=== PATIENT | female | born 1975 | race Caucasian/White ===

== ENCOUNTER → 2018-12-02 | Outpatient (CLI) | payer SELFPAY ==
--- NOTE | 2018-12-02 13:09 | REP ---
Left foot series: Four views. History: Pain in the left foot. Findings: Four views of the left foot demonstrate Achilles and plantar calcaneal spurring. 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 Is also spurring at the first IP joint. Overall mineralization pattern is normal. No acute bony abnormality. Impression: Heel spurring. First MTP joint and first IP joint osteoarthritic spurring. Electronically Signed by Mina Rebollar MD 12/02/2018 01:00 P
== END ==
LOC: M ADAMS 11:08
PROVIDERS: ATTEND Physician Assistant Medical
DX: M19.072 Primary osteoarthritis, left ankle and foot (principal); M25.775 Osteophyte, left foot

== ENCOUNTER → 2019-11-14 | Outpatient (REF) | payer OTHER ==
[2019-11-14 12:00] LABS: BASO % 0.6 % (0.0-1.0); EOS # 0.2 10^3/uL (0.0-0.5); EOS % 3.4 % (0.0-3.0); HEMATOCRIT 39.9 % (36.0-47.0); HEMOGLOBIN 12.9 g/dl (12.0-15.5); LYMPH # 1.3 10^3/uL (1.5-5.0); LYMPH % 20.1 % (24.0-44.0); MEAN CORPUSCULAR HEMOGLOBIN 29.3 pg (27.0-33.0); MEAN CORPUSCULAR HGB CONC 32.3 g/dl (32.0-36.5); MEAN CORPUSCULAR VOLUME 90.5 fl (80.0-96.0); MONO # 0.5 10^3/uL (0.0-0.8); NEUTROPHILS # 4.2 10^3/uL (1.5-8.5); NEUTROPHILS % 67.6 % (36.0-66.0); PLATELET COUNT, AUTOMATED 253 10^3/uL (150-450); RED BLOOD COUNT 4.41 10^6/uL (4.00-5.40); WHITE BLOOD COUNT 6.2 10^3/uL (4.0-10.0)
[2019-11-14 12:31] LABS: HEMOGLOBIN A1c 5.7 %
[2019-11-14 12:41] LABS: ALBUMIN 3.7 GM/DL (3.2-5.2); ALT/SGPT 15 U/L (12-78); BILIRUBIN,TOTAL 0.6 MG/DL (0.2-1.0); BLOOD UREA NITROGEN 11 MG/DL (7-18); CALCIUM LEVEL 9.2 MG/DL (8.5-10.1); CARBON DIOXIDE LEVEL 29 MEQ/L (21-32); CHLORIDE LEVEL 107 MEQ/L (98-107); CHOLESTEROL LEVEL 192 MG/DL (<200); CHOLESTEROL RISK RATIO 4.465 (<5); CREATININE FOR GFR 0.87 MG/DL (0.55-1.30); FREE T4 0.88 NG/DL (0.76-1.46); GLOMERULAR FILTRATION RATE > 60.0 (>58); GLUCOSE, FASTING 95 MG/DL (70-100); HDL CHOLESTEROL 43 MG/DL (>40); LDL CHOLESTEROL 99 MG/DL (<100); NON-HDL-C 149 MG/DL; POTASSIUM SERUM 4.3 MEQ/L (3.5-5.1); SODIUM LEVEL 139 MEQ/L (136-145); TOTAL PROTEIN 6.9 GM/DL (6.4-8.2); TRIGLYCERIDES LEVEL 248 MG/DL (<150)
== END ==
LOC: M LAB REF 11:23
PROVIDERS: ATTEND Physician Assistant
DX: A63.0 Anogenital (venereal) warts (principal); F41.8 Other specified anxiety disorders; Z00.01 Encounter for general adult medical examination with abnormal findings; J45.20 Mild intermittent asthma, uncomplicated; Z68.39 Body mass index [BMI] 39.0-39.9, adult; E66.09 Other obesity due to excess calories

== ENCOUNTER → 2020-03-19 | Outpatient (CLI) | payer OTHER ==
--- NOTE | 2020-03-19 14:57 | REPMRS ---
Patient History The patient states she had a clinical breast exam in February 2020. Family history of uterine cancer at age 62 in mother, colorectal cancer at age 50 or over in maternal grandmother, unknown cancer in paternal grandmother, esophgealcancer in paternal grandfather. Digital Woman Screen Mammo: March 19, 2020 - Exam #: [id number] Bilateral CC and MLO view(s) were taken. Technologist: Ambar Lorenz, Technologist No prior studies available for comparison. FINDINGS: There are scattered fibroglandular densities. The Volpara volumetric breast density category is: B. There is no evidence of dominant mass, architectural distortion, or grouped microcalcification typical of malignancy. 3-D tomosynthesis shows no additional findings. Assessment: BI-RADS/ACR category 1 mammogram. Negative Mammogram. Recommendation Routine screening mammogram of both breasts in 1 year (for women over age 40). This patient's Lifetime Breast Cancer RIsk is estimated at 10.8 %. This mammogram was interpreted with the aid of an FDA-approved computer-aided dectection system. Electronically Signed By: Dawson Rebollar MD 03/19/20 [id number]
== END ==
LOC: M WHC 09:04
PROVIDERS: ATTEND Physician Assistant
DX: Z12.31 Encounter for screening mammogram for malignant neoplasm of breast (principal); Z80.49 Family history of malignant neoplasm of other genital organs

== ENCOUNTER 2020-09-06 08:40 | Emergency (ER) | payer OTHER ==
[~2020-09-06] VITALS: Ht 162.6 cm; Wt 105.2 kg
[2020-09-06] MEDS ORDERED: CETI-24 (08:47)
[2020-09-06] MEDS ORDERED: ESCI10TA2 (08:47)
[2020-09-06] MEDS ORDERED: MONT5TAB2 (08:47)
[2020-09-06] MEDS ORDERED: FLUTISP (08:47)
[2020-09-06 09:24] LABS: BASO % 0.5 % (0.0-1.0); EOS # 0.2 10^3/uL (0.0-0.5); EOS % 2.7 % (0.0-3.0); HEMATOCRIT 36.9 % (36.0-47.0); HEMOGLOBIN 11.4 g/dl (12.0-15.5); MEAN CORPUSCULAR HEMOGLOBIN 28.2 pg (27.0-33.0); MEAN CORPUSCULAR HGB CONC 30.9 g/dl (32.0-36.5); MEAN CORPUSCULAR VOLUME 91.3 fl (80.0-96.0); MONO # 0.4 10^3/uL (0.0-0.8); MONO % 7.7 % (0.0-5.0); NEUTROPHILS # 3.9 10^3/uL (1.5-8.5); NEUTROPHILS % 70.6 % (36.0-66.0); PLATELET COUNT, AUTOMATED 241 10^3/uL (150-450); RED BLOOD COUNT 4.04 10^6/uL (4.00-5.40); WHITE BLOOD COUNT 5.5 10^3/uL (4.0-10.0)
--- NOTE | 2020-09-06 09:39 | REP ---
INDICATION: CHEST PAIN COMPARISON: None. TECHNIQUE: Portable AP view of the chest FINDINGS: The mediastinum and cardiac silhouette are within normal limits for portable technique. The lung humphries are clear without acute consolidation, effusion, or pneumothorax. Skeletal structures are intact. IMPRESSION: No acute cardiopulmonary process appreciated. <Electronically signed by Dell Delgado > 09/06/20 [id number]
[2020-09-06] MEDS ORDERED: MAALOX 30 ML SUSP *UDC PO ONE (10:00)
[2020-09-06 10:07] LABS: ALBUMIN 3.4 GM/DL (3.2-5.2); ALT/SGPT 21 U/L (12-78); BILIRUBIN,DIRECT < 0.1 MG/DL (0.0-0.2); BILIRUBIN,TOTAL 0.3 MG/DL (0.2-1.0); BLOOD UREA NITROGEN 9 MG/DL (7-18); CALCIUM LEVEL 8.6 MG/DL (8.5-10.1); CARBON DIOXIDE LEVEL 26 MEQ/L (21-32); CHLORIDE LEVEL 109 MEQ/L (98-107); CK-MB VALUE MASS 1.6 NG/ML (<3.6); CPK CREATINE PHOSPHOKINASE 117 U/L (26-192); CREATININE FOR GFR 0.78 MG/DL (0.55-1.30); GLOMERULAR FILTRATION RATE > 60.0 (>58); GLUCOSE, FASTING 103 MG/DL (70-100); LIPASE 74 U/L (73-393); MB/CK RELATIVE INDEX 1.37 (< OR =4); POTASSIUM SERUM 4.2 MEQ/L (3.5-5.1); SODIUM LEVEL 140 MEQ/L (136-145); TOTAL PROTEIN 6.4 GM/DL (6.4-8.2); TROPONIN I < 0.02 NG/ML (< 0.10)
[2020-09-06] MEDS ORDERED: ISOVUE-370 76% 100ML VIAL As Ordered ONE (10:15)
--- NOTE | 2020-09-06 10:34 | REP ---
INDICATION: CHEST PAIN/ELEVATED D-DIMER COMPARISON: None. TECHNIQUE: Axial contrast enhanced images from the thoracic inlet to the upper abdomen using pulmonary embolus technique with multiplanar re-formations. 75 ml Isovue 370 intravenous contrast material administered without complication. This CT examination was performed using the following dose reduction techniques: Automated exposure control, adjustment of mA and/or kv according to the patient's size, and use of iterative reconstruction technique. FINDINGS: Satisfactory enhancement of the pulmonary vasculature is achieved and no filling defects are identified to suggest pulmonary embolus. Further evaluation of the mediastinum demonstrates normal thoracic aorta, heart and pericardium. The bilateral lung humphries demonstrates small focal area of consolidation along the medial right lower lobe and minimal basilar atelectasis. No effusion. No pneumothorax. Tracheobronchial tree is patent. No obvious adenopathy. IMPRESSION: 1. No evidence for pulmonary embolus. Normal thoracic aorta. 2. Small focal area of consolidation along the medial right lower lobe. Follow-up to resolution is recommended. <Electronically signed by Dell Delgado > 09/06/20 [id number]
[2020-09-06 10:53] VITALS: BP 148/62
--- NOTE | 2020-09-06 21:35 | ECGEPIP ---
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
== END 2020-09-06 10:57 | disposition home or self-care (01) ==
LOC: M ED 08:40
DX: R07.89 Other chest pain (principal); J18.1 Lobar pneumonia, unspecified organism; R06.02 Shortness of breath; R11.0 Nausea; J45.909 Unspecified asthma, uncomplicated; K21.9 Gastro-esophageal reflux disease without esophagitis; F32.9 Major depressive disorder, single episode, unspecified; F41.9 Anxiety disorder, unspecified; Z79.899 Other long term (current) drug therapy
CPT/HCPCS: 36415; 71045; 71275; 80048; 80076; 82550; 82553; 83690; 85025; 85379; 93005; 93041; 94760; 99285; Q9967